=== PATIENT | female | born 1960 | race Two or more races ===

== ENCOUNTER 2017-02-25 18:23 | Emergency (ER) | payer BC, OTHER ==
[~2017-02-25] VITALS: Ht 160 cm; Wt 123.0 kg
[~2017-02-25 18:23] MED LIST: HYDROXYCHLOR200 MG PO; LEVAQUIN750 MG OR; LYRICA150 MG OR; LYRICA50 MG PO; MELOXICAM15 MG PO; MOBIC7.5 MG PO; MOTRIN200 MG PO; PLAQUENIL200 MG OR; POLYTRIM OU; PRILOSEC20 MG/CAP PO; PRILOSEC40 MG PO
[2017-02-25 19:41] LABS: HEMATOCRIT 37.8 % (37.0-47.0); HEMOGLOBIN 12.2 g/dl (12.0-16.0); IMMATURE GRANULOCYTES 0.7 % (0.0-1.0); MEAN CELL VOLUME 88.3 fL CALC (80.0-100.0); MEAN CORPUSCULAR HGB 28.5 pG CALC (26.0-32.0); MEAN CORPUSCULAR HGB CONC 32.3 g/L CALC (32.0-36.0); NEUT# 5.85 thou/uL (2.00-7.15); RED BLOOD COUNT 4.28 mill/uL (4.20-5.60); RED CELL DISTRI WIDTH 13.6 % (11.5-15.5)
[2017-02-25 19:42] LABS: URINE BLOOD DIPSTICK MODERATE (NEGATIVE); URINE CLARITY CLEAR; URINE COLOR YELLOW; URINE GLUCOSE - DIPSTICK NEGATIVE (NEGATIVE); URINE KETONE 15 mg/dL (NEGATIVE); URINE LEUK ESTERASE NEGATIVE (NEGATIVE); URINE NITRITE - DIPSTICK NEGATIVE (Negative); URINE PH 5.5 (4.5-8.0); URINE PROTEIN - DIPSTICK TRACE mg/dL (NEG-TRACE); URINE SPECIFIC GRAVITY >=1.030
[2017-02-25 20:04] LABS: ALBUMIN 4.6 g/dL (3.2-5.0); ALKALINE PHOSPHATASE 79 u/l (38-126); AMYLASE 39 u/l (30-110); ANION GAP 17 (6-22 (CALC)); BILIRUBIN, TOTAL 0.7 mg/dL (0.0-1.4); BUN 14 mg/dL (7-17); BUN/CREATININE RATIO 19 (12-20 (CALC)); CALCIUM 9.8 mg/dL (8.4-10.2); CARBON DIOXIDE 23 mmol/l (22-30); CHLORIDE 105 mmol/l (95-108); CREATININE 0.7 mg/dL (0.5-1.0); GFR > 60 ML/MIN (>=60 (CALC)); GFR FOR AFR.AMER. > 60 ML/MIN (>=60 (CALC)); GLUCOSE 89 mg/dL (65-105); LIPASE 105 u/l (23-300); POTASSIUM 3.8 mmol/l (3.5-5.1); SGOT/AST 24 u/l (14-36); SGPT/ALT 33 u/l (9-52); SODIUM 141 mmol/l (137-146)
[2017-02-25 20:16] LABS: URINE BILIRUBIN - DIPSTICK MODERATE (NEGATIVE)
[2017-02-25 20:23] LABS: URINE SQUAMOUS EPITHELIAL CELL FEW EPI/hpf (0-FEW)
[2017-02-25 21:30] VITALS: BP 132/64
== END 2017-02-25 22:00 | disposition home or self-care (01) | DRG 392 ==
LOC: ED 18:23
PROVIDERS: Emergency Medicine
DX: K52.9 Noninfective gastroenteritis and colitis, unspecified (principal); R11.2 Nausea with vomiting, unspecified

== ENCOUNTER 2019-09-02 17:40 | Emergency (ER) | payer BC ==
[~2019-09-02] VITALS: Ht 160 cm; Wt 122.0 kg
[2019-09-02 17:47] VITALS: BP 189/89
[2019-09-02] MEDS ORDERED: LORTAB 1010 MG PO (18:08)
[2019-09-02] MEDS ORDERED: AMOXICILLIN500 MG PO ×2 (18:08→18:16)
== END 2019-09-02 18:16 | disposition home or self-care (01) | DRG 159 ==
LOC: ED 17:40
DX: K04.7 Periapical abscess without sinus (principal); K08.89 Other specified disorders of teeth and supporting structures

== ENCOUNTER 2020-10-06 16:06 | Inpatient (IN) | payer BC ==
[~2020-10-06] VITALS: Ht 160 cm; Wt 125.2 kg
[~2020-10-06 16:06] MED LIST changes: +AMOXICILLIN500 MG PO; +LORTAB 1010 MG PO
--- NOTE | 2020-10-06 16:14 | NUR ---
PT WHEELED BACK TO ER BED 14 VIA WHEELCHAIR FOR BEDSIDE TRIAGE AT THIS TIME.
--- NOTE | 2020-10-06 17:24 | NUR ---
COVID SWAB COLLECTED, ISOLATION PRECAUTIONS INITIATED.
--- NOTE | 2020-10-06 17:30 | NUR ---
UNABLE TO OBTAIN IV AFTER MULTIPLE ARREMPTS TO OBTAIN IV SITE BY MULTIPLE NURSES. NOTIFIED.
[2020-10-06 18:32] LABS: HEMATOCRIT 37.6 % (37.0-47.0); HEMOGLOBIN 12.3 g/dl (12.0-16.0); IMMATURE GRANULOCYTES 0.4 % (0.0-5.0); MEAN CELL VOLUME 88.9 fL CALC (80.0-100.0); MEAN CORPUSCULAR HGB 29.1 pG CALC (26.0-32.0); MEAN CORPUSCULAR HGB CONC 32.7 g/dL CAL (32.0-36.0); NEUT# 4.38 thou/uL (2.00-7.15); RED BLOOD COUNT 4.23 mill/uL (4.20-5.60); RED CELL DISTRI WIDTH 13.3 % (11.5-15.5)
[2020-10-06 18:46] LABS: ALBUMIN 4.3 g/dL (3.2-5.0); ALKALINE PHOSPHATASE 82 u/l (38-126); ANION GAP 11 (6-22 (CALC)); BILIRUBIN, TOTAL 0.5 mg/dL (0.0-1.4); BUN 14 mg/dL (7-17); BUN/CREATININE RATIO 17 (12-20 (CALC)); CARBON DIOXIDE 25 mmol/l (22-30); CHLORIDE 102 mmol/l (95-108); CREATININE 0.8 mg/dL (0.5-1.0); GFR > 60 ML/MIN (>=60 (CALC)); GFR FOR AFR.AMER. > 60 ML/MIN (>=60 (CALC)); POTASSIUM 3.7 mmol/l (3.5-5.1); SODIUM 134 mmol/l (137-146); TOTAL PROTEIN 7.8 g/dL (6.3-8.2)
[2020-10-06 18:47] LABS: SGOT/AST 44 u/l (14-36)
--- NOTE | 2020-10-06 18:56 | NUR ---
REPORT GIVEN TO SYBIL MCMULLEN.
--- NOTE | 2020-10-06 19:18 | NUR ---
HAND OFF REPORT RECEIVED FROM ELIZABETH
--- NOTE | 2020-10-06 21:24 | NUR ---
ATTEMPTED TO GIVE REPORT TO INPATIENT NURSE, NURSE UNAVAILABLE.
--- NOTE | 2020-10-06 21:36 | NUR ---
LOVENOX GIVEN, PATIENT AWAKE AND LAERT, NO C/O PAIN OR DISCOMFORT, NO S/S OF DISTRESS NOTED, RESPIRATIONS EVEN AND UNLABORED ON O2@3L NC
--- NOTE | 2020-10-06 21:43 | NUR ---
ATTEMPTED TO GIVE REPORT TO INPATIENT UNIT, NO ANSWER.
--- NOTE | 2020-10-06 22:10 | NUR ---
PT ARRIVED TO THE FLOOR VIA WHEELCHAIR, ACCOMPANIED BY ED STAFF. PT AMBULATED FROM WHEELCHAIR TO BED WITH A STEADY GATE. RESPIRATIONS ARE SHORT ON EXERTION, O2 @ 4L VIA NC. PEDAL PULSES ARE STRONG. PT DENIES ANY PAIN OR DISCOMFORT AT THIS TIME. PT ORIENTED TO ROOM AND CALL [facility] [facility]. SAFETY PRECAUTIONS IN PLACE. WILL CONTINUE TO MONITOR.
--- NOTE | 2020-10-06 22:11 | NUR ---
HAND OFF REPORT GIVEN TO GABBY
[2020-10-06 23:00] VITALS: BP 137/56
--- NOTE | 2020-10-07 00:35 | NUR ---
PT RESTING IN BED, NO S/S OF DISTRESS AT THIS TIME. SAFETY PRECAUTIONS IN PLACE. WILL CONTINUE TO MONITOR.
[2020-10-07 04:15] VITALS: BP 130/59
--- NOTE | 2020-10-07 04:19 | NUR ---
PT RESTING IN BED, NO S/S OF DISTRESS AT THIS TIME. SAFETY PRECAUTIONS IN PLACE. WILL CONTINUE TO MONITOR.
[2020-10-07 06:20] LABS: HEMATOCRIT 39.5 % (37.0-47.0); HEMOGLOBIN 12.4 g/dl (12.0-16.0); IMMATURE GRANULOCYTES 0.7 % (0.0-5.0); MEAN CELL VOLUME 91.4 fL CALC (80.0-100.0); MEAN CORPUSCULAR HGB 28.7 pG CALC (26.0-32.0); MEAN CORPUSCULAR HGB CONC 31.4 g/dL CAL (32.0-36.0); NEUT# 3.6 thou/uL (2.00-7.15); RED BLOOD COUNT 4.32 mill/uL (4.20-5.60); RED CELL DISTRI WIDTH 13.3 % (11.5-15.5)
[2020-10-07 06:21] LABS: ALBUMIN 3.9 g/dL (3.2-5.0); ALKALINE PHOSPHATASE 72 u/l (38-126); ANION GAP 10 (6-22 (CALC)); BILIRUBIN, TOTAL 0.4 mg/dL (0.0-1.4); BUN 12 mg/dL (7-17); BUN/CREATININE RATIO 20 (12-20 (CALC)); C-REACTIVE PROTEIN 7.3 mg/dL (0-0.9); CARBON DIOXIDE 28 mmol/l (22-30); CHLORIDE 105 mmol/l (95-108); CREATININE 0.6 mg/dL (0.5-1.0); GFR > 60 ML/MIN (>=60 (CALC)); GFR FOR AFR.AMER. > 60 ML/MIN (>=60 (CALC)); POTASSIUM 4.3 mmol/l (3.5-5.1); SGOT/AST 40 u/l (14-36); SODIUM 138 mmol/l (137-146); TOTAL PROTEIN 6.8 g/dL (6.3-8.2)
--- NOTE | 2020-10-07 07:19 | NUR ---
PT note Patient is screened for PT intervention and no needs are identified at this time
[2020-10-07 08:10] VITALS: BP 134/60
--- NOTE | 2020-10-07 08:10 | NUR ---
ASSESSMENT IS COMPLETED: IV SITE IS FREE FROM REDNESS OR EDEMA.HR IS REG,PULSES ARE STRONG X4, ABD IS SOFT WITH ACTIVE BS. BREATH SOUNDS ARE DIMINISHED. TELE MONITOR IN PLACE.
[2020-10-07 11:27] VITALS: BP 151/59
--- NOTE | 2020-10-07 12:00 | NUR ---
PT IS RELAXING IN BED DOES GET SOB ON EXERTION. CONTINUE TO OSBERVE AND MONITOR.
[2020-10-07 15:28] VITALS: BP 167/57
--- NOTE | 2020-10-07 16:00 | NUR ---
PT IS RELAXING IN BED WITH NO DISTRESS NOTED. IV SITE IS FREE FROM REDNESS OR EDEMA.
[2020-10-07 19:00] VITALS: BP 136/52
--- NOTE | 2020-10-07 20:00 | NUR ---
RECEIEVED REPORT FROM CANDICE ACOSTA. PATIENT IN BED BUT ATTEMPTING TO GET UP, SAYING "HE IS SUPPOSED TO GET OUT OF HERE". HE IS ONLY A&O TO SELF, HE'S VERY CONFUSED AND BECOMING AGGRESSIVE AND PULLING OFF TELE MONITOR, PULLED CALL LIGHT FROM THE WALL AND TRIED THROWING IT BEHIND HIMSELF. ASSESSMENT DONE & VS OBTAINED. ATTEMPTED TO REORIENT PT TO PLACE AND TIME, BUT PT IS VERY HARD OF HEARING AND ISN'T FOLLOWING COMMANDS AT THIS TIME. NO S/SX OF DISTRESS OR DISCOMFORT OBSERVED AT THIS TIME. ALL SAFETY MEASURES AND AIR- BORNE PRECAUTIONS IN PLACE. WILL CONTINUE TO MONITOR FOR COMFORT & SAFETY.
--- NOTE | 2020-10-07 20:00 | NUR ---
RECEIEVED REPORT FROM CANDICE ACOSTA. PATIENT RESTING IN BED, NO S/SX OF DISTRESS OR DISCOMFORT OBSERVED AT THIS TIME. ASSESSMENT DONE & VS OBTAINED. PT DENIES PAIN/ SOB AT THIS TIME. NO NEEDS EXPRESSED AT THIS TIME. ALL SAFETY MEASURES AND AIRBORNE PRECAUTIONS IN PLACE. WILL CONTINUE TO MONITOR FOR NEEDS, COMFORT AND SAFETY.
--- NOTE | 2020-10-07 23:35 | NUR ---
PATIENT IN BED, REFUSING TO WEAR TELE MONITOR, KEEPS TAKING IT OFF, SHAYE RN-IMPORT/EXPORT ANALYST AWARE. WILL MONITOR PATIENT CLOSELY AND ATTEMPT TO REPLY ONCE PATIENT HAS CALM DOWN. WILL INCREASE ROUNDING TO EVERY 30 MINS FOR SAFETY, PT IS ALSO ON VISUAL MONITOR FOR SAFETY. ALL SAFETY MEASURES IN PLACE AND BED RAILS UP X 3. WILL CONTINUE TO MONITOR CLOSELY.
--- NOTE | 2020-10-07 23:51 | NUR ---
PATIENT IN BED, REFUSING TO WEAR TELE MONITOR, KEEPS TAKING IT OFF, SHAYE RN-PROPERTY COORDINATOR AWARE. WILL MONITOR PATIENT CLOSELY AND ATTEMPT TO REPLY ONCE PATIENT HAS CALM DOWN. WILL INCREASE ROUNDING TO EVERY 30 MINS FOR SAFETY, PT IS ALSO ON VISUAL MONITOR FOR SAFETY. ALL SAFETY MEASURES IN PLACE AND BED RAILS UP X 3. WILL CONTINUE TO MONITOR CLOSELY.
--- NOTE | 2020-10-07 23:55 | NUR ---
PATIENT LAYING IN BED WATCHING TV. NO S/SX OF DISTRESS OR DISCOMFORT NOTED. NO NEEDS EXPRESSED, WILL CONTINUE TO MONITOR FOR COMFORT AND SAFETY.
[2020-10-08 00:08] VITALS: BP 167/65
--- NOTE | 2020-10-08 03:48 | NUR ---
PT LAYING IN BED RESTING, NO S/SX OF DISTRESS OR DISCOMFORT NOTED. WILL CONTINUE TO MONITOR FOR COMFORT AND SAFETY.
[2020-10-08 04:00] VITALS: BP 142/61
[2020-10-08 06:03] LABS: HEMATOCRIT 36.3 % (37.0-47.0); HEMOGLOBIN 11.5 g/dl (12.0-16.0); MEAN CELL VOLUME 89.9 fL CALC (80.0-100.0); MEAN CORPUSCULAR HGB 28.5 pG CALC (26.0-32.0); MEAN CORPUSCULAR HGB CONC 31.7 g/dL CAL (32.0-36.0); RED BLOOD COUNT 4.04 mill/uL (4.20-5.60); RED CELL DISTRI WIDTH 13.3 % (11.5-15.5)
[2020-10-08 06:26] LABS: ANION GAP 10 (6-22 (CALC)); BUN 14 mg/dL (7-17); BUN/CREATININE RATIO 23 (12-20 (CALC)); CARBON DIOXIDE 26 mmol/l (22-30); CHLORIDE 107 mmol/l (95-108); CREATININE 0.6 mg/dL (0.5-1.0); GFR > 60 ML/MIN (>=60 (CALC)); GFR FOR AFR.AMER. > 60 ML/MIN (>=60 (CALC)); MAGNESIUM 2.2 mg/dL (1.6-2.3); SODIUM 139 mmol/l (137-146)
[2020-10-08 08:00] VITALS: BP 144/77
--- NOTE | 2020-10-08 08:00 | NUR ---
ASSESSMENT IS COMPLETED: IV SITE IS FREE FROM REDNESS OR EDEMA. HR IS REG,PULSES ARE STRONG X4, ABD IS SOFT WITH ACTIVE BS. BREATH SOUNDS ARE DIMINISHED. TELE MONITOR IN PLACE. CONTINUE TO OSBERVE AND MONITOR.
[2020-10-08 10:30] VITALS: BP 167/75
--- NOTE | 2020-10-08 10:30 | NUR ---
PT IS RESTING COMFORTABLY. NO DISTRESS NOTED.
--- NOTE | 2020-10-08 12:15 | NUR ---
PT IS RELAXING IN BED WITH NO DISTRESS NOTED. IV SITE IS FREE FROM REDNESS OR EDEMA.
--- NOTE | 2020-10-08 15:27 | NUR ---
PATIENT HAS A RIGHT CENTRAL LINE (FEMORAL) TRIPLE LUMEN. THE BROWN LINE WAS FOUND TO BE OCCLUDED AT THIS TIME. PATIENT EDUCATED ON THE USE OF ALTEPLASE AND 2MG OF ALTEPLASE WAS ADMINISTERED IN THE BROWN LINE (LUMEN) AT THIS TIME. LINE WAS MARKED NOT TO BE USED AT THIS TIME AND PATIENT WAS INSTRUCTED TO NOT ALLOW ANYONE TO TRY AND USE THIS LINE AT THIS TIME. PATIENT VERBALIZES UNDERSTANDING. PATIENT ADVISED IF SHE SHOULD HAVE ANY ISSUES TO CALL FOR NURSE.
--- NOTE | 2020-10-08 16:15 | NUR ---
PT IS RELAXING IN BED WITH NO DISTRESS NOTED. IV SITE IS FREE FROM REDNESS OR EDEMA.
--- NOTE | 2020-10-08 16:45 | NUR ---
PATIENT CENTRAL LINE (FEMORAL) BROWN LUMEN WAS ACCESSED AND 10ML OF BLOOD RETURNED AND WASTED AT THIS TIME AFTER WHICH 20 MLS OF SALINE FLUSH USE TO CLEAR LINE AT THIS TIME. BROWN LUMEN LINE IS WORKING PROPERLY AND NOW CAN BE ACCESSED AT THIS TIME. PATIENT VERBALIZES UNDERSTANDING THAT LINE IS CLEAR AND ABLE TO BE USED NECESSARY.
[2020-10-08 17:15] VITALS: BP 161/64
[2020-10-08 19:15] VITALS: BP 155/66
--- NOTE | 2020-10-08 19:52 | NUR ---
ANTIBIOTIC THERAPY COMPLETED AT THIS TIME. 2ND IV ANTIBIOTIC ADMINISTERED ALSO AT THIS TIME. RUNNING TO MIDLINE TO R.FEM/SITE APPEARS HEALTHY AT THIS TIME. PT DENIES PAIN AT SITE. REPORTS BREATHING IS MUCH IMPROVED ON 3LNC, SAT @95% AT THIS TIME.
--- NOTE | 2020-10-08 20:25 | NUR ---
PT ASSESSMENT COMPLETED AT THIS TIME. BREATHING IS VERY SHALLOW, BUT NON-LABORED AT THIS TIME. DIFFICULT TO HEAR BREATH SOUNDS DUE TO SHALLOW BREATHS, DISCUSSED WITH HER ABOUT TAKING DEEPER BREATHS, SHE STATES THAT SHE WILL TRY TO REMEMBER TO BREATH DEEPLY. I WILL PROVIDE IS FOR ASSISTANCE IN THIS. 2+ EDEMA NOTED TO BLE, SHE REPORTS THIS IS NORMAL FOR HER. HYPO-ACTIVE BOWEL SOUNDS, BUT ABD IS SOFT AND NON-TENDER AT THIS TIME. MIDLINE TO R.FEM SL. SITE APPEARS HEALTHY AND ALL LUMENS FLUSHED PATENT AT THIS TIME. PROVIDED PT WITH ICE, DENIES ANY OTHER NEEDS AT THIS TIME. WILL CONTINUE TO MONITOR FOR NEEDS AND SHE HAS BEEN INSTRUCTED TO CALL NEEDS ARISE. CALL LIGHT W/IN REACH.
[2020-10-09 00:28] VITALS: BP 164/52
--- NOTE | 2020-10-09 00:30 | NUR ---
V/S ASSESSED AT THIS TIME. PT DENIES FEELING SOB. NO S/O DISTRESS. SHE IS SITTING UP IN BED WATCHING MOVIE ON IPAD. LIGHTS TURNED DOWN LOW. CALL LIGHT IS AT SIDE.
--- NOTE | 2020-10-09 02:13 | NUR ---
PT IN BED WITH LIGHTS OUT SLEEPING. NO S/O DISTRESS AT THIS TIME
[2020-10-09 05:13] VITALS: BP 158/81
--- NOTE | 2020-10-09 05:15 | NUR ---
BLOOD DRAWN FOR AM LABS FROM R.FEMORAL CENTRAL LINE. ALL THREE LUMENS WERE FLUSHED AT THIS TIME PER PROTOCOL. PT DENIES ANY OTHER NEEDS AT THIS TIME. CALL LIGHT AT SIDE, SHE STATES SHE IS RETURNING TO SLEEP.
[2020-10-09 05:33] LABS: HEMATOCRIT 35.1 % (37.0-47.0); HEMOGLOBIN 11.1 g/dl (12.0-16.0); IMMATURE GRANULOCYTES 1.7 % (0.0-5.0); MEAN CELL VOLUME 90.5 fL CALC (80.0-100.0); MEAN CORPUSCULAR HGB 28.6 pG CALC (26.0-32.0); MEAN CORPUSCULAR HGB CONC 31.6 g/dL CAL (32.0-36.0); NEUT# 6.45 thou/uL (2.00-7.15); RED BLOOD COUNT 3.88 mill/uL (4.20-5.60); RED CELL DISTRI WIDTH 13.4 % (11.5-15.5)
[2020-10-09 05:53] LABS: ALBUMIN 3.4 g/dL (3.2-5.0); ALKALINE PHOSPHATASE 66 u/l (38-126); ANION GAP 6 (6-22 (CALC)); BILIRUBIN, TOTAL 0.4 mg/dL (0.0-1.4); BUN 18 mg/dL (7-17); BUN/CREATININE RATIO 31 (12-20 (CALC)); C-REACTIVE PROTEIN 5.9 mg/dL (0-0.9); CARBON DIOXIDE 30 mmol/l (22-30); CHLORIDE 106 mmol/l (95-108); CREATININE 0.6 mg/dL (0.5-1.0); GFR > 60 ML/MIN (>=60 (CALC)); GFR FOR AFR.AMER. > 60 ML/MIN (>=60 (CALC)); POTASSIUM 3.7 mmol/l (3.5-5.1); SGOT/AST 31 u/l (14-36); SODIUM 138 mmol/l (137-146); TOTAL PROTEIN 6.2 g/dL (6.3-8.2)
--- NOTE | 2020-10-09 08:00 | NUR ---
PT IS RESTING IN BED WITH MO DISTRESS NOTED IV SITE IS FREE FROM REDNESS OR EDEMA.
[2020-10-09 09:15] VITALS: BP 160/69
--- NOTE | 2020-10-09 09:15 | NUR ---
ASSESSMENT IS COMPLETED: IV SITE IS FREE FROM REDNESS OR EDEMA. HR IS REG,PULSES ARE STRONG X4, ABD IS SOFT WITH ACTIVE BS,. BREATH SOUNDS ARE DIMINISHED, ADN CLEAR IN THE BOTTOM. O2 @ 3LITERS WITH NC. TELE MONITOR IN PLACE. CONTINUE TO OSBERVE AND MONITOR.
[2020-10-09 12:00] VITALS: BP 163/66
--- NOTE | 2020-10-09 12:30 | NUR ---
PT IS RELAXING IN BED WITH NO DISTRESS NOTED. IV SITE IS FREE FROM REDNESS OR EDEMA.
--- NOTE | 2020-10-09 14:29 | NUR ---
PRELIMINARY CULTURE RESULTS CALLED TO / VIALS GROWING GRAM (+) COCCI. NO NEW ORDERS AT THIS TIME.
--- NOTE | 2020-10-09 16:15 | NUR ---
PT IS TALKING TO FAMILY ON THE PHONE. IV SITE IS FREE FROM REDNESS OR EDEMA
--- NOTE | 2020-10-09 17:30 | NUR ---
PT IS UPSET DUE TO FAMILY ISSUES. BP RAN 148/115. INFORMED PT AND PT STATED" ITS OK" WILL RECHECK
[2020-10-09 18:55] VITALS: BP 154/75
--- NOTE | 2020-10-09 19:38 | NUR ---
IV ANTIBIOTIC THERAPY COMPLETED AT THIS TIME. R.FEM CENTRAL LINE FLUSHED W/20CC OF NS FLUSH FOR PATENCY. SITE APPEARS HEALTHY, DRESSING IS SOMEWHAT BLOODY, REPORTEDLY LEFT FROM INSERTION, I OFFERED TO CHANGE DRESSING, SHE REFUSED STATING I DON'T WANT TO MESS WITH SOMETHING THAT IS SEALED AND WORKING. PT DEMONSTRATED USAGE OF IS, BREATHS MEASURING ONLY AT 500 AT THIS TIME. GOAL SET TO 1000 AND WE REVIEWED ITS PROPER USAGE. SHE REPORTS SHE IS GOING TO WORK ON THAT AND GET UP IN A LITTLE WHILE TO MOVE AROUND. I DISCUSSED PT'S ELEVATED BLOOD PRESSURE WITH HER STATING WE WILL GET A RECHECK ON IT BECAUSE HER DBP WAS HIGH, SHE STATED THAT SHE IS JUST STRESSED AND DOES NOT WANT TO TAKE ANY MEDICATION FOR IT. I STATED I AM CONCERNED ABOUT IT, SHE REPLIED I AM NOT AND DO NOT WANT MEDICATION FOR IT. I OFFERED ANY OTHER COMFORT MEASURES, DENIED NEED. I ENCOURAGED HER TO CALL ANY NEEDS ARISE, VERBALIZED UNDERSTANDING. CALL LIGHT AT SIDE.
--- NOTE | 2020-10-09 20:45 | NUR ---
ANTIBIOTIC THERAPY ADMINISTERED AT THIS TIME. PT IS LOC AND TALKING ON CELLPHONE. OXYGEN SAT 95% ON 2LNC, SHE DOES NOT APPEAR SOB AND REPORTS THAT SHE JUST RETURNED TO THE BED FROM AMBULATING TO RESTROOM. SHE WAS MEDICATED AT THIS TIME W/PM MEDICATIONS AND IV ANTIBIOTIC THERAPY.
--- NOTE | 2020-10-09 21:15 | NUR ---
IV ANTIBIOTIC COMPLETED AT THIS TIME. CENTRAL LINE TO R.FEM FLUSHED PATENT AT THIS TIME AND SALINE LOCKED. PT DENIES ANY OTHER NEEDS AT THIS TIME. SHE AGAIN DEMONSTRATED USAGE OF IS, STILL ONLY MAINTAINING VERY SHORT/SHALLOW BREATHS MEASURING AT 500.
--- NOTE | 2020-10-09 23:54 | NUR ---
PT REPORTS THAT SHE IS MEASURING 1000 ON IS. SHE IS UP IN BED WATCHING A MOVIE. SHE DID MOVE AROUND THE ROOM SOME FOR EXERCISE AND TOLERATED WELL. OXYGEN IS ON AT 2L.
[2020-10-10 00:02] VITALS: BP 184/67
[2020-10-10 04:20] VITALS: BP 164/84
[2020-10-10 08:29] VITALS: BP 156/73
--- NOTE | 2020-10-10 08:29 | NUR ---
RECIEVED REPORT FROM KEMI ALTAMIRANO. PT RESTING IN SEMI FOWLERS POSITION UPON ENTERING ROOM. INTRODUCED SELF TO PT AND DISCUSSED POC. PT IS A/O X3. ASSESSMENT AND VITALS COMPLETED. RESPIRATIONS ARE EVEN AND UNLABORED ON 2L NC, NONDEPENDENT AT HOME . LUNG SOUNDS ARE DIMINISHED. HEART RHYTHM IS NORMAL WITH TELE IN PLACE. SB PER ER MONITORING. BOWEL SOUNDS ARE ACTIVE IN ALL QUADRANTS. RADIAL AND PEDAL PULSES STRONG. RIGHT FEMORAL TRIPLE LUMEN FLUSHED WITH GOOD RETURN IN ALL LINES. SITE APPEARS SLIGHTLY BLOODY, PT REQUEST TO LEAVE IS. PT DENIES ANY PAINS OR DISCOMFORTS AT THIS TIME. ALL SAFETY AND ISOLATION PRECAUTIONS ARE IN PLACE WITH CALL LIGHT IN REACH.WILL CONTINUE TO MONITOR
[2020-10-10 11:00] VITALS: BP 164/72
--- NOTE | 2020-10-10 11:41 | NUR ---
PT OXYGEN SAT 98% ON 2L NC. REMOVED OXYGEN TO MONITOR SAT ON ROOM AIR. PT DECREASED TO 90%. 1.5L NC REAPPLIED. PT OXYGEN SAT 95%. RESPIRATIONS REAMINS EVEN AND UNLABORED.TELE MONITORING REMAINS IN PLACE. PT DENIES OF ANY PAINS OR DISCOMFORTS. ALL SAFTEY AND ISOLATION PRECAUTIONS ARE IN PLACE WITH CALL LIGHT IN REACH. WILL CONTINUE TO MONITOR
--- NOTE | 2020-10-10 12:15 | NUR ---
INDUSTRIAL GAS FITTER INFORMED BY TELE MONITORING THAT PT HAS 1 DEGREE AV BLOCK. DANIELA GRAF NOTIFED OF CHANGES. PT REMAINS RESTING IN SEMI FOWLERS POSITIONS. RESPIRATIONS EVEN AND UNLABORED ON 1.5L NC. NO SIGNS OF ANY PAINS OR DISCOMFORTS. ALL SAFETY AND ISOLATION PRECAUTIONS REMAINS IN PLACE. WILL CONTINUE TO MONITOR
[2020-10-10 15:20] VITALS: BP 162/72
--- NOTE | 2020-10-10 15:48 | NUR ---
PT RESTING IN SEMI FOLWERS POSITION ON PHONE. RESPIRATIONS REMAINS EVEN AND UNLABORED ON 1.5L NC. PT INFORMED STEM ROLLER OR CRUSHER OPERATOR THAT SHE BELIEVES [employer] HAS HELPED. PT DENIES OF ANY PAINS OR DISCOMFORTS. ALL SAEFTY PRECAUTIONS ARE IN PLACE WITH CALL LIGHT IN REACH. AIR/CONTACT PRECAUTIONS IN PLACE. WILL CONTINUE TO MONITOR.
[2020-10-10 19:00] VITALS: BP 144/68
--- NOTE | 2020-10-10 19:50 | NUR ---
PT SITTING UP IN BED, WATCHING VIDEO ON VIDEO PLAYER WITH HEADPHONES. PHYSICAL ASSESMENT COMPLETE. PT DEMONSTRATES APPROPRIATE AND EFFECTIVE USE OF INCENTIVE SPIROMETER. DENIES SOB. 02 @ 1.5L/MIN VIA NC. SCHEDULED ROCEPHIN ADMINISTERED, SEE E-MAR. R-GROIN TLC FLUSHED X3 PORTS. PLAN OF CARE REVIEWED. PT VERBALIZES UNDERSTANDING AND DENIES QUESTIONS. EXTRA BLANKET PROVIDED PER PTS REQUEST. PT DENIES FURTHER NEEDS AT THIS TIME. CALL [facility] WITHIN REACH, AGREES TO CALL PRN.
[2020-10-11] VITALS: BP 144/66
--- NOTE | 2020-10-11 00:02 | NUR ---
PT SITTING UP IN BAD WATCHING MOVIE ON HER PERSONAL TABLET WITH HEADPHONES ON. CALL [employer] REMAINS WITHIN REACH.
[2020-10-11 04:00] VITALS: BP 143/89
--- NOTE | 2020-10-11 04:00 | NUR ---
PT LAYING IN BED WITH EYES CLOSED, NO APPARENT DISTRESS, APPEARS TO BE SLEEPING COMFORTABLY. RESPIRATIONS REGULAR AND UNLABORED. CALL [facility] REMAINS WITHIN REACH.
--- NOTE | 2020-10-11 05:30 | NUR ---
LABS DRAWN FROM R-GROIN TLC, TLC FLUSHED X3 PORTS PER [facility] POLICY.
[2020-10-11 05:53] LABS: HEMATOCRIT 37.2 % (37.0-47.0); HEMOGLOBIN 11.8 g/dl (12.0-16.0); MEAN CELL VOLUME 89.4 fL CALC (80.0-100.0); MEAN CORPUSCULAR HGB 28.4 pG CALC (26.0-32.0); MEAN CORPUSCULAR HGB CONC 31.7 g/dL CAL (32.0-36.0); NEUT# 5.81 thou/uL (2.00-7.15); RED BLOOD COUNT 4.16 mill/uL (4.20-5.60); RED CELL DISTRI WIDTH 13.1 % (11.5-15.5)
[2020-10-11 06:05] LABS: IMMATURE GRANULOCYTES 8.2 % (0.0-5.0)
[2020-10-11 06:24] LABS: ALBUMIN 3.7 g/dL (3.2-5.0); ALKALINE PHOSPHATASE 69 u/l (38-126); ANION GAP 9 (6-22 (CALC)); BILIRUBIN, TOTAL 0.4 mg/dL (0.0-1.4); BUN 17 mg/dL (7-17); BUN/CREATININE RATIO 30 (12-20 (CALC)); C-REACTIVE PROTEIN 3.2 mg/dL (0-0.9); CARBON DIOXIDE 29 mmol/l (22-30); CHLORIDE 104 mmol/l (95-108); CREATININE 0.6 mg/dL (0.5-1.0); GFR > 60 ML/MIN (>=60 (CALC)); GFR FOR AFR.AMER. > 60 ML/MIN (>=60 (CALC)); SGOT/AST 33 u/l (14-36); SODIUM 139 mmol/l (137-146); TOTAL PROTEIN 6.4 g/dL (6.3-8.2)
[2020-10-11 08:06] VITALS: BP 156/75
--- NOTE | 2020-10-11 08:06 | NUR ---
RECIEVED REPORT FROM KEMI NATHAN. PT RESTING IN SEMI FOWLERS POSITION UPON ENTERING ROOM. INTRODUCED SELF TO PT AND DISCUSSED POC. PT IS A/O X3. ASSESSMENT AND VITALS COMPLETED. BP 156/75, HR 69, O2 97% ON 1.5L NC. RESPIRATIONS ARE EVEN AND UNLABORED. LUNG SOUNDS ARE CLEAR IN UPPER LOBES, DIMINISHED IN LOWER LOBES. BOWEL SOUNDS ARE HYPOACTIVE, LAST RPEORTED BM 10/08/2020. PT REFUSES ANYTHING TO ASSIST WITH BM AT THIS TIME. RIGHT TRIPLE LUMEN FEMORAL FLUSHED, SITE APPEARS HEALTHY AND PATENT WITH GOOD BLOOD RETURN.RADIAL AND PEDAL PULSES STRONG. PT DENIES ANY PAINS. I.S AT BEDSIDE, PT ABLE TO REACH 1000. NON PRODUCTIVE COUGH NOTED. ALL SAFETY AND ISOALTION PRECAUTIONS ARE IN PLACE WIHT CALL LIGHT IN REACH. WILL CONTINUE TO MONITOR
--- NOTE | 2020-10-11 09:30 | NUR ---
DR FORD AT BEDSIDE
[2020-10-11 11:05] VITALS: BP 146/80
--- NOTE | 2020-10-11 12:00 | NUR ---
PT RESTING IN HIGH YOUNG POSITION ON PHONE WITH EARPHONES ON. RESPIRATIONS ARE EVEN AND UNLABORED ON 1.5L NC.TELE MONITORING IN PLACE. PT DENIES OF ANY PAINS OR DISCOMFORTS AT THIS TIME. ALL SAFETY AND ISOLATION PRECAUTIONS ARE IN PLACE WITH CALL LIGHT IN REACH. WILL CONTINUE TO MONITOR
[2020-10-11 14:55] VITALS: BP 161/76
--- NOTE | 2020-10-11 15:31 | NUR ---
PT RESTING IN SEMI FOWLERS POSITION TALKING ON PHONE. RESPIRATIONS ARE EVEN AND UNLABORED ON 1.5L NC.TELE MONITORING IN PLACE. PT DENIES OF ANY PAINS OR NEEDS AT THIS TIME. WILL CONTINUE TO MONITOR
--- NOTE | 2020-10-11 19:10 | NUR ---
REPORT FROM JATIN HARVEY. ASSUMED PT CARE.
[2020-10-11 19:40] VITALS: BP 149/68
--- NOTE | 2020-10-11 20:01 | NUR ---
PT NOTED SITTING UP IN BED ON PERSONAL CELL PHONE. ALERT AND ORIENTED X4. NO APPARENT RESPIRATORY DISTRESS NOTED. RESPIRATIONS EVEN AND UNLABORED. 02 @1.5L/M VIA NC. IS AT BEDSIDE. EDUCATION PROVIDED. TRIPLE LUMEN NOTED TO RIGHT FEMORAL, ALL LUMENS FLUSHED WELL WITH BRISK BLOOD RETURN. PT DENIES ANY PAIN OR SOB. TRACE EDEMA NOTED TO BILATERAL ANKLES. DISCUSSED POC AND HOME O2 ARRIVAL. PT VERBALIZED UNDERSTANDING AND IS ANTICIPATES GOING HOME IN AM. PT DENIES ANY CURRENT WANTS OR NEEDS. FIELD REIMBURSEMENT MANAGER IN PLACE. CALL LIGHT WITHIN REACH. WILL CONTINUE TO MONITOR.
[2020-10-12] VITALS: BP 169/83
--- NOTE | 2020-10-12 00:01 | NUR ---
PT RESTING IN BED WITH EYES CLOSED. WAKES EASILY. NO APPARENT DISTRESS NOTED. VSS. O2 @ 1.5L/M VIA NC. PT DENIES ANY CURRENT WANTS OR NEEDS. CALL LIGHT WITHIN REACH. WILL CONTINUE TO MONITOR.
--- NOTE | 2020-10-12 04:19 | NUR ---
LABS OBTAINED FROM TRIPLE LUMEN RIGHT FEMORAL LINE PER PROTOCOL. PT TOLERATED WELL. NO APPARENT DISTRESS NOTED. VSS. PT DENIES ANY CURRENT WANTS OR NEEDS. CALL LIGHT WITHIN REACH. WILL CONTINUE TO MONITOR.
[2020-10-12 04:25] VITALS: BP 142/69
[2020-10-12 05:23] LABS: HEMATOCRIT 35.7 % (37.0-47.0); HEMOGLOBIN 11.5 g/dl (12.0-16.0); MEAN CELL VOLUME 88.6 fL CALC (80.0-100.0); MEAN CORPUSCULAR HGB 28.5 pG CALC (26.0-32.0); MEAN CORPUSCULAR HGB CONC 32.2 g/dL CAL (32.0-36.0); NEUT# 5.75 thou/uL (2.00-7.15); RED BLOOD COUNT 4.03 mill/uL (4.20-5.60); RED CELL DISTRI WIDTH 13.2 % (11.5-15.5)
[2020-10-12 05:30] LABS: ALBUMIN 3.3 g/dL (3.2-5.0); ALKALINE PHOSPHATASE 59 u/l (38-126); ANION GAP 7 (6-22 (CALC)); BILIRUBIN, TOTAL 0.3 mg/dL (0.0-1.4); BUN 21 mg/dL (7-17); BUN/CREATININE RATIO 32 (12-20 (CALC)); CARBON DIOXIDE 30 mmol/l (22-30); CHLORIDE 106 mmol/l (95-108); CREATININE 0.7 mg/dL (0.5-1.0); GFR > 60 ML/MIN (>=60 (CALC)); GFR FOR AFR.AMER. > 60 ML/MIN (>=60 (CALC)); POTASSIUM 4.1 mmol/l (3.5-5.1); SGOT/AST 31 u/l (14-36); SODIUM 139 mmol/l (137-146); TOTAL PROTEIN 5.9 g/dL (6.3-8.2)
[2020-10-12 05:34] LABS: IMMATURE GRANULOCYTES 9.8 % (0.0-5.0)
[2020-10-12 08:02] VITALS: BP 156/74
--- NOTE | 2020-10-12 08:10 | NUR ---
RECIEVED REPORT FROM CANDICE SANDERS. PT RESTING IN SEMI FOWLERS POSITION. INTRODUCED SELF TO PT AND DISCUSSED POC. PT IS A/O X3. ASSESSMENT AND VITALS COMPLETED. RESPIRATIONS ARE EVEN AND UNLABORED ON 1.5L NC. HEART RHYTHM NORMAL WITH TELE IN PLACE. BOWEL SOUNDS ACTIVE. RADIAL AND PEDAL PULSES STRONG. RIGHT FEMORAL TRIPLE LUMEN FLUSHED WITH GOOD BLOOD RETURN SITE APPEARS HEALTHY AND PATENT. PT DENIES OF ANY PAINS OR DISCOMFORTS. ALL SAFETY AND ISOALTION PRECAUTIONS ARE IN PLACE WIHT CALL LIGHT IN REACH. WILL CONTIUE TO MONITOR
--- NOTE | 2020-10-12 10:07 | NUR ---
DR FORD AT BEDSIDE
[2020-10-12] MEDS ORDERED: DEXAMETHASON6 MG PO (10:39)
[2020-10-12] MEDS ORDERED: DOXYCYCL HYC100 MG PO (10:44)
[2020-10-12] MEDS ORDERED: ALPRAZOLAM0.25 MG PO (10:45)
--- NOTE | 2020-10-12 11:00 | NUR ---
WALK TEST COMPLETED. PT SATING 94% ON ROOM AIR RESTING. PT OXYGEN DECREASE TO 87% UPON WALKING. RETURNED BACK TO ROOM. OXYGEN SAT 94% ON 2L NC RESTING. RESPIRTIONS REMAINS EVEN AND UNLABORED. ALL SAFETY PRECAUTIONS ARE IN PLACE. WILL CONTINUE TO MONITOR
[2020-10-12 11:20] VITALS: BP 136/82
--- NOTE | 2020-10-12 11:58 | NUR ---
PT EDUCATED ON DISCHARGE INSTRUCTIONS AND AND NEW MEDICATIONS. PT VERBALIZED UNDERSTANDING. TRIPLE LUMEN FEMORAL TO BE REMOVED BY KEMI DONOVAN. PT REQUEST TO BE REMOVED AFTER LUNCH. TELE MONITORING REMOVED, ER NOTFIED. SAFTEY AND ISOLATION PRECAUTIONS REMAINS IN PLACE WITH CALL LIGHT IN REACH. WILL CONTINUE TO MONITOR
--- NOTE | 2020-10-12 14:40 | NUR ---
TRIPLE LUMEN FEMORAL REMOVED BY [facility].. PT TOELRTED WELL. WAITING FOR TRANSPORTATION AT THIS TIME
--- NOTE | 2020-10-12 15:03 | NUR ---
Discharge instructions given. Patient verbalizes understanding of same. Discharged in stable condition via Wheelchair to Home with staff. All belongings sent with pt. PT DSICHARGE VIA WHEELCHAIR IN STABLE CONDITION WITH ALL BELONGINGS, OXYGEN AND DISCHARGE INSTRUCTIONS ACCOMPAINED BY KARINA ARIAS
== END 2020-10-12 15:03 | disposition home or self-care (01) | DRG 177 ==
LOC: ED 16:06 → ED-I 19:30 → ED 19:46 → MS2 19:47
PROVIDERS: Family Medicine; Nurse Practitioner; Nurse Practitioner Family; ADMIT Internal Medicine; ATTEND Internal Medicine
PROC: 06HY33Z Insertion of Infusion Device into Lower Vein, Percutaneous Approach (ICD-10-PCS; 2020-10-06)
PROC: XW033E5 Introduction of Remdesivir Anti-infective into Peripheral Vein, Percutaneous Approach, New Technology Group 5 (ICD-10-PCS; principal; 2020-10-07)
DX: U07.1 COVID-19 (principal); J12.89 Other viral pneumonia; J96.00 Acute respiratory failure, unspecified whether with hypoxia or hypercapnia; F41.9 Anxiety disorder, unspecified; I10 Essential (primary) hypertension; I34.1 Nonrheumatic mitral (valve) prolapse; K21.9 Gastro-esophageal reflux disease without esophagitis; M79.7 Fibromyalgia; M19.90 Unspecified osteoarthritis, unspecified site; Z79.1 Long term (current) use of non-steroidal anti-inflammatories (NSAID); Z79.899 Other long term (current) drug therapy
CPT/HCPCS: J1650; J2997